=== PATIENT | male | born 1950 | race Caucasian/White ===

== ENCOUNTER 2022-03-12 19:18 | Emergency (ER) | payer MEDICARE, OTHER ==
[2022-03-12 19:40] LABS: BASOPHIL 0.9 % (0-2); EOSINOPHIL 2.1 % (0-7); HCT 44.3 % (42.0-52.0); HGB 15.9 g/dl (13.2-18.0); LYMPHOCYTE 46.4 % (15-48); MCHC 35.9 g/dL (32.0-36.0); MCV 94.9 fL (78.0-100.0); MONOCYTE 8.3 % (0-12); MPV 9.6 fL (6.0-9.5); NEUTROPHIL 42.1 % (41-80); NRBC 0; PLT 98 K/uL (150-400); RBC 4.67 M/uL (4.70-6.00); RDW 12.4 % (11.5-14.0); WBC 5.3 K/uL (4.0-10.5)
[2022-03-12 20:14] LABS: ALBUMIN 3.9 g/dL (3.4-5.0); BILIRUBIN - TOTAL 0.5 mg/dL (0.2-1.0); BUN/CREAT RATIO (CALC) 15.6 RATIO; CREATININE 1.22 mg/dL (0.67-1.17); GLOBULIN (CALCULATION) 3.6 g/dL; POTASSIUM 3.5 mmol/L (3.5-5.1); TOTAL PROTEIN 7.5 g/dL (6.4-8.2)
== END 2022-03-12 22:43 | disposition home or self-care (01) ==
LOC: FER 19:18
PROVIDERS: Emergency Medicine
DX: T59.91XA Toxic effect of unspecified gases, fumes and vapors, accidental (unintentional), initial encounter (principal); R42 Dizziness and giddiness; I10 Essential (primary) hypertension; R05.9 Cough, unspecified
CPT/HCPCS: 36415; 70450; 71045; 80053; 84484; 85025; 93005